=== PATIENT | female | born 1975 | race Caucasian/White ===

== ENCOUNTER 2022-04-23 07:10 | Day surgery (SDC) | payer OTHER ==
[2022-04-20 12:22] VITALS: BMI 32.5
[2022-04-23] MEDS ORDERED: ROPIVACAINE HCL 0.5% 30ML VIAL ONE (07:39)
[2022-04-23] MEDS ORDERED: BUPIVACAINE HCL/PF 2.5 MG/ML - 30 ML VIAL IJ ONE (07:39)
[2022-04-23] MEDS ORDERED: PROPOFOL 40 ML ONE ×2 (08:59→11:42)
[2022-04-23] MEDS ORDERED: MIDAZOLAM HCL 2 MG/2 ML SINGLE DOSE VIAL ONE (08:59)
[2022-04-23] MEDS ORDERED: BUPIVACAINE LIPOSOME/PF (EXPAREL) 266 MG/20 ML VIAL ONE (10:20)
[2022-04-23] MEDS ORDERED: BUPIVACAINE HCL/PF 0.5% (5MG/ML) 10 ML VIAL ONE (10:20)
[2022-04-23] MEDS ORDERED: ceFAZolin SODIUM 1 GM VIAL ONE (10:52)
[2022-04-23] MEDS ORDERED: KETOROLAC TROMETHAMINE 30 MG/1 ML VIAL ONE (10:55)
[2022-04-23] MEDS ORDERED: DEXAMETHASONE SOD PHOSPHATE 4 MG/1 ML VIAL ONE (10:55)
[2022-04-23] MEDS ORDERED: ONDANSETRON 4 MG/2 ML VIAL ONE (10:55)
[2022-04-23] MEDS ORDERED: LABETALOL HCL 5 MG/1 ML (100MG/20 ML VIAL) ONE (11:54)
[2022-04-23] MEDS ORDERED: ACETAMINOPHEN INJECTION 100 ML IVPB ONE (13:25)
[2022-04-23] MEDS ORDERED: ACETAMINOPHEN 1000 MG/100 ML BAG IVPB ONE (13:32)
[2022-04-23] MEDS ORDERED: oxyCODONE HCL 5 MG TABLET PO PRN (13:32)
[2022-04-23] MEDS ORDERED: ONDANSETRON 4 MG/2 ML VIAL IVPUSH PRN (13:32)
[2022-04-23] MEDS ORDERED: LACTATED RINGERS SOLUTION 1,000 ML IV SCH (13:45)
[2022-04-23 15:40] VITALS: TEMP 97.3
[2022-04-23] MEDS ORDERED: oxyCODONE HCL 5 MG TABLET ONE (15:41)
[2022-04-23 16:20] VITALS: RESP 17
[2022-04-23 16:24] VITALS: BP 112/64; PULSE 74
== END 2022-04-23 16:00 | disposition home or self-care (01) ==
LOC: FASU 07:10
PROVIDERS: ATTEND Orthopaedic Surgery Sports Medicine
PROC: 0RNJ4ZZ Release Right Shoulder Joint, Percutaneous Endoscopic Approach (ICD-10-PCS; 2022-04-23)
PROC: 0LS34ZZ Reposition Right Upper Arm Tendon, Percutaneous Endoscopic Approach (ICD-10-PCS; 2022-04-23)
PROC: 0PB94ZZ Excision of Right Clavicle, Percutaneous Endoscopic Approach (ICD-10-PCS; principal; 2022-04-23 10:54)
PROC: 0LS34ZZ Reposition Right Upper Arm Tendon, Percutaneous Endoscopic Approach (ICD-10-PCS; 2022-04-23 10:54)
DX: S46.011A Strain of muscle(s) and tendon(s) of the rotator cuff of right shoulder, initial encounter (principal); M75.21 Bicipital tendinitis, right shoulder; M75.51 Bursitis of right shoulder; M65.811 Other synovitis and tenosynovitis, right shoulder; S43.431A Superior glenoid labrum lesion of right shoulder, initial encounter; M19.011 Primary osteoarthritis, right shoulder; M75.01 Adhesive capsulitis of right shoulder; X58.XXXA Exposure to other specified factors, initial encounter; Y93.9 Activity, unspecified; Y92.9 Unspecified place or not applicable
CPT/HCPCS: 81025; 94760; C1713

== ENCOUNTER 2022-04-27 04:56 | Emergency (ER) | payer OTHER ==
[2022-04-27 05:08] VITALS: BP 151/88; PULSE 81; RESP 18; TEMP 98.2; BMI 32.5
[2022-04-27] MEDS ORDERED: diphenhydrAMINE HCL 25 MG CAPSULE (FP) PO ONE (05:19)
[2022-04-27] MEDS ORDERED: diphenhydrAMINE HCL 50 MG CAPSULE ONE (05:19)
== END 2022-04-27 05:59 | disposition home or self-care (01) ==
LOC: FER 04:56 → SUPCPDRO 04:56 → FER 05:59
DX: G89.18 Other acute postprocedural pain (principal); L29.9 Pruritus, unspecified
CPT/HCPCS: 99283-25

== ENCOUNTER 2023-05-24 06:24 | Day surgery (SDC) | payer OTHER ==
[2023-05-16 17:44] VITALS: BMI 34.5
[2023-05-24 06:47] VITALS: TEMP 97.6
[2023-05-24] MEDS ORDERED: ONDANSETRON 4 MG/2 ML VIAL IVPUSH PRN (06:58)
[2023-05-24] MEDS ORDERED: ACETAMINOPHEN 325 MG TABLET (FP) PO PRN (06:58)
[2023-05-24] MEDS ORDERED: oxyCODONE HCL 5 MG TABLET PO PRN (06:58)
[2023-05-24] MEDS ORDERED: LACTATED RINGERS SOLUTION 1,000 ML IV SCH (07:00)
[2023-05-24] MEDS ORDERED: BUPIVACAINE HCL/PF 2.5 MG/ML - 30 ML VIAL IJ ONE (07:15)
[2023-05-24] MEDS ORDERED: PROPOFOL 20 ML ONE (07:17)
[2023-05-24] MEDS ORDERED: MIDAZOLAM HCL 2 MG/2 ML SINGLE DOSE VIAL ONE (07:17)
[2023-05-24] MEDS ORDERED: ACETAMINOPHEN INJECTION 100 ML IVPB ONE (08:27)
[2023-05-24] MEDS: ACETAMINOPHEN 1000 MG/100 ML BAG IVPB ONE (08:40)
[2023-05-24] MEDS ORDERED: FENTANYL CITRATE/PF 50 MCG/ML VIAL ONE (09:01)
[2023-05-24] MEDS ORDERED: oxyCODONE HCL 5 MG TABLET ONE (09:08)
[2023-05-24] MEDS: oxyCODONE HCL 5 MG TABLET PO PRN (09:10)
[2023-05-24 10:00] VITALS: BP 110/68; PULSE 72; RESP 19
== END 2023-05-24 10:20 | disposition home or self-care (01) ==
LOC: FASU 06:24
PROVIDERS: ATTEND Orthopaedic Surgery Sports Medicine
PROC: 0LN33ZZ Release Right Upper Arm Tendon, Percutaneous Approach (ICD-10-PCS; principal; 2023-05-24 07:55)
DX: M77.11 Lateral epicondylitis, right elbow (principal)
CPT/HCPCS: 81025; 94760; J0131

== ENCOUNTER 2023-10-02 00:25 | Inpatient (IN) | payer OTHER ==
[2023-10-02] MEDS ORDERED: morphine SULFATE 4 MG/ML VIAL ONE ×2 (00:51→04:03)
[2023-10-02] MEDS ORDERED: KETOROLAC TROMETHAMINE 15 MG/ML VIAL ONE ×2 (00:51→03:12)
[2023-10-02] MEDS ORDERED: ONDANSETRON 4 MG/2 ML VIAL ONE ×3 (00:51→04:03)
[2023-10-02] MEDS: KETOROLAC TROMETHAMINE 15 MG/ML VIAL IVPUSH ONE ×2 (01:11→03:16)
[2023-10-02] MEDS: morphine CARPU-JECT 4 MG/1 ML DISP.SYRIN IVPUSH ONE ×3 (01:11→04:09)
[2023-10-02] MEDS: LACTATED RINGERS SOLUTION 1000 ML INFUS.BAG IV ONE (01:12)
[2023-10-02] MEDS: ONDANSETRON 4 MG/2 ML VIAL IVPUSH ONE ×3 (01:12→04:23)
[2023-10-02 01:14] LABS: BASO % 0.6 % (0-2.0); EOS % 1.4 % (0-4.5); HEMATOCRIT 37.4 % (32.4-45.2); HEMOGLOBIN 12.4 GM/dL (10.7-15.3); LYMPH % 31.8 % (8-40); MCH 29.3 pg (25.7-33.7); MCHC 33.2 g/dl (32.0-36.0); MEAN CELL VOLUME 88.2 fl (80-96); MEAN PLT VOLUME 7.1 fl (7.5-11.1); MONO % 8.3 % (3.8-10.2); NEUT % 57.9 % (42.8-82.8); PLATELET COUNT 411 10^3/uL (134-434); RBC 4.24 M/mm3 (3.60-5.2); RDW 12.9 % (11.6-15.6)
[2023-10-02 01:30] LABS: INR 0.97 (0.83-1.09); PROTHROMBIN TIME (PATIENT) 11.2 SEC (9.7-13.0)
[2023-10-02 01:31] LABS: POTASSIUM 3.8 mmol/L (3.5-5.1)
[2023-10-02 01:32] LABS: ACTIVATED PTT 30.6 SECONDS (25.2-36.5)
[2023-10-02 01:33] LABS: ALBUMIN 3.8 g/dl (3.4-5.0); CALCIUM 8.8 mg/dL (8.5-10.1)
[2023-10-02 01:36] LABS: CREATININE 0.8 mg/dL (0.55-1.3)
[2023-10-02 01:38] LABS: BILIRUBIN,TOTAL 0.3 mg/dL (0.2-1); TOT PROT 7.1 g/dl (6.4-8.2)
[2023-10-02 02:52] LABS: EPI CELLS 27 /uL (0-25.1); HYALINE CASTS 3 /uL (0-3.1); PH,URINE 5.5 (5.0-8.0); URINE APPEARANCE CLEAR; URINE BACTERIA 329 /uL (0-1359); URINE BILIRUBIN NEGATIVE (NEGATIVE); URINE COLOR YELLOW; URINE GLUCOSE (UA) NEGATIVE (NEGATIVE); URINE KETONE TRACE (NEGATIVE); URINE LEUK ESTERASE TRACE (NEGATIVE); URINE NITRITE NEGATIVE (NEGATIVE); URINE PROTEIN TRACE (NEGATIVE); URINE WBC 11 /uL (0-25.8)
[2023-10-02 03:26] LABS: URINE RBC 58 /uL (0-23.9); YEAST NONE SEEN (NEGATIVE)
[2023-10-02] MEDS ORDERED: CEFTRIAXONE 1 GM/50 ML BAG ONE (04:32)
[2023-10-02] MEDS ORDERED: TAMSULOSIN HCL 0.4 MG CAP ONE (04:32)
[2023-10-02] MEDS: CEFTRIAXONE 1 GM in DEXTROSE 5%-WATER - 50 ML IVPB ONE (04:40)
[2023-10-02] MEDS: TAMSULOSIN HCL 0.4 MG CAP PO ONE (04:40)
[2023-10-02] MEDS: CEFTRIAXONE 1,000 MG in DEXTROSE 5%-WATER - 50 ML IVPB ONE (04:40)
[2023-10-02] MEDS: SODIUM CHLORIDE 1,000 ML IV SCH ×2 (05:12→11:54)
[2023-10-02] MEDS ORDERED: KETOROLAC TROMETHAMINE 15 MG/ML VIAL IVPUSH PRN (05:17)
[2023-10-02] MEDS ORDERED: ONDANSETRON 4 MG/2 ML VIAL IVPUSH PRN ×2 (05:17→11:40)
[2023-10-02] MEDS ORDERED: ACETAMINOPHEN 500 MG TABLET (FP) PO PRN (05:17)
[2023-10-02 09:22] LABS: HEMATOCRIT 34.8 % (32.4-45.2); HEMOGLOBIN 11.9 GM/dL (10.7-15.3); MCH 29.9 pg (25.7-33.7); MCHC 34.1 g/dl (32.0-36.0); MEAN CELL VOLUME 87.6 fl (80-96); PLATELET COUNT 381 10^3/uL (134-434); RBC 3.98 M/mm3 (3.60-5.2); RDW 13.1 % (11.6-15.6); WHITE BLOOD COUNT 10.8 K/mm3 (4.0-10.0)
[2023-10-02 09:42] LABS: POTASSIUM 4.3 mmol/L (3.5-5.1)
[2023-10-02 09:44] LABS: ALBUMIN 3.3 g/dl (3.4-5.0); BLOOD UREA NITROGEN 13.3 mg/dL (7-18); CALCIUM 8.6 mg/dL (8.5-10.1)
[2023-10-02 09:46] LABS: MAGNESIUM 1.8 mg/dL (1.8-2.4)
[2023-10-02 09:48] LABS: CREATININE 0.9 mg/dL (0.55-1.3); PHOSPHOROUS 4.2 mg/dL (2.5-4.9)
[2023-10-02 09:49] LABS: BILIRUBIN,TOTAL 0.4 mg/dL (0.2-1); TOT PROT 6.6 g/dl (6.4-8.2)
[2023-10-02] MEDS ORDERED: ENOXAPARIN NA (PORCINE) 40 MG/0.4 ML DISP.SYRIN SQ SCH (10:00)
[2023-10-02] MEDS: morphine SULFATE 4 MG/ML VIAL IVPUSH PRN (10:16)
[2023-10-02] MEDS ORDERED: SUCCINYLCHOLINE CHLORIDE 200 MG/10 ML SYRINGE ONE (10:43)
[2023-10-02] MEDS ORDERED: MIDAZOLAM HCL 2 MG/2 ML SINGLE DOSE VIAL ONE (10:43)
[2023-10-02] MEDS ORDERED: PROPOFOL 20 ML ONE (10:43)
[2023-10-02] MEDS ORDERED: ceFAZolin SODIUM 1 GM VIAL ONE (11:01)
[2023-10-02] MEDS: ceFAZolin SODIUM 1 GM VIAL IVPB ONE (11:03)
[2023-10-02] MEDS ORDERED: KETOROLAC TROMETHAMINE 30 MG/1 ML VIAL ONE (11:28)
[2023-10-02] MEDS: ACETAMINOPHEN 1000 MG/100 ML BAG IVPB ONE (11:45)
[2023-10-02] MEDS: LACTATED RINGERS SOLUTION 1,000 ML IV SCH (11:51)
[2023-10-02] MEDS ORDERED: MAGNESIUM HYDROX 2400MG/30ML ORAL SUSPENSION 30 ML CUP PO PRN (13:13)
[2023-10-02] MEDS ORDERED: SENNOSIDES/DOCUSATE COMBO (SENNA PLUS) TABLET (UD) PO PRN (13:13)
[2023-10-02 14:56] VITALS: BMI 33.9
[2023-10-02] MEDS: KETOROLAC TROMETHAMINE 15 MG/ML VIAL IVPUSH PRN (19:12)
[2023-10-02] MEDS: ACETAMINOPHEN 500 MG TABLET (FP) PO PRN (22:26)
[2023-10-03 07:27] LABS: BASO % 0.6 % (0-2.0); HEMATOCRIT 32.8 % (32.4-45.2); HEMOGLOBIN 11.3 GM/dL (10.7-15.3); LYMPH % 22.9 % (8-40); MCH 30.2 pg (25.7-33.7); MCHC 34.6 g/dl (32.0-36.0); MEAN CELL VOLUME 87.4 fl (80-96); MEAN PLT VOLUME 7.2 fl (7.5-11.1); MONO % 10.4 % (3.8-10.2); NEUT % 64.1 % (42.8-82.8); PLATELET COUNT 334 10^3/uL (134-434); RBC 3.76 M/mm3 (3.60-5.2); RDW 13.4 % (11.6-15.6); WHITE BLOOD COUNT 7.1 K/mm3 (4.0-10.0)
[2023-10-03 07:43] LABS: POTASSIUM 4.2 mmol/L (3.5-5.1)
[2023-10-03 07:45] LABS: BLOOD UREA NITROGEN 9.6 mg/dL (7-18); CALCIUM 7.9 mg/dL (8.5-10.1)
[2023-10-03 07:49] LABS: CREATININE 0.6 mg/dL (0.55-1.3)
[2023-10-03] MEDS ORDERED: TAMSULOSIN HCL 0.4 MG CAP PO SCH (08:30)
[2023-10-03] MEDS: morphine SULFATE 4 MG/ML VIAL IVPUSH PRN (08:50)
[2023-10-03] MEDS: TAMSULOSIN HCL 0.4 MG CAP PO SCH (08:56)
[2023-10-03] MEDS ORDERED: CEFTRIAXONE 1 GM in DEXTROSE 5%-WATER - 50 ML IVPB SCH (10:00)
[2023-10-03] MEDS: CEFTRIAXONE 1 GM in DEXTROSE 5%-WATER - 50 ML IVPB SCH (10:17)
[2023-10-04 06:43] LABS: HEMATOCRIT 32.7 % (32.4-45.2); HEMOGLOBIN 11.2 GM/dL (10.7-15.3); MCH 30.2 pg (25.7-33.7); MCHC 34.3 g/dl (32.0-36.0); MEAN PLT VOLUME 7.1 fl (7.5-11.1); PLATELET COUNT 326 10^3/uL (134-434); RBC 3.72 M/mm3 (3.60-5.2); WHITE BLOOD COUNT 9.1 K/mm3 (4.0-10.0)
[2023-10-04 07:02] LABS: POTASSIUM 3.8 mmol/L (3.5-5.1)
[2023-10-04 07:06] LABS: CALCIUM 8.4 mg/dL (8.5-10.1)
[2023-10-04 07:07] LABS: MAGNESIUM 1.7 mg/dL (1.8-2.4)
[2023-10-04 07:09] LABS: CREATININE 0.7 mg/dL (0.55-1.3); PHOSPHOROUS 4.5 mg/dL (2.5-4.9)
[2023-10-04] MEDS: MAGNESIUM SULFATE IN WATER 2 GM/50 ML IVPB IVPB ONE (08:39)
[2023-10-04] MEDS: ACETAMINOPHEN 325 MG TABLET (FP) PO SCH (10:01)
[2023-10-04] MEDS: NAPROXEN 250 MG TABLET PO SCH (10:57)
[2023-10-04] MEDS: ONDANSETRON 4 MG/2 ML VIAL IVPUSH PRN (12:24)
[2023-10-04] MEDS: oxyCODONE HCL 5 MG TABLET PO PRN (13:17)
[2023-10-05 07:43] LABS: BASO % 0.8 % (0-2.0); EOS % 2.3 % (0-4.5); HEMOGLOBIN 11.5 GM/dL (10.7-15.3); LYMPH % 24.2 % (8-40); MCH 30.4 pg (25.7-33.7); MCHC 34.8 g/dl (32.0-36.0); MEAN CELL VOLUME 87.2 fl (80-96); MEAN PLT VOLUME 7.2 fl (7.5-11.1); MONO % 9.7 % (3.8-10.2); PLATELET COUNT 342 10^3/uL (134-434); RBC 3.79 M/mm3 (3.60-5.2); RDW 13.2 % (11.6-15.6); WHITE BLOOD COUNT 6.9 K/mm3 (4.0-10.0)
[2023-10-05 08:03] LABS: POTASSIUM 3.8 mmol/L (3.5-5.1)
[2023-10-05 08:09] LABS: CALCIUM 8.5 mg/dL (8.5-10.1)
[2023-10-05 08:10] LABS: ALBUMIN 3.3 g/dl (3.4-5.0); BLOOD UREA NITROGEN 8.6 mg/dL (7-18)
[2023-10-05 08:11] LABS: PHOSPHOROUS 4.8 mg/dL (2.5-4.9)
[2023-10-05 08:13] LABS: BILIRUBIN,TOTAL 0.6 mg/dL (0.2-1); CREATININE 0.6 mg/dL (0.55-1.3)
[2023-10-05 08:16] LABS: TOT PROT 6.4 g/dl (6.4-8.2)
[2023-10-05] MEDS: oxyCODONE HCL 5 MG TABLET PO PRN (09:39)
[2023-10-06 02:02] VITALS: RESP 18
[2023-10-06 09:19] VITALS: TEMP 98.1
[2023-10-06 09:32] LABS: BASO % 0.7 % (0-2.0); EOS % 2.1 % (0-4.5); HEMATOCRIT 35.4 % (32.4-45.2); HEMOGLOBIN 11.9 GM/dL (10.7-15.3); LYMPH % 23.3 % (8-40); MCH 29.4 pg (25.7-33.7); MCHC 33.7 g/dl (32.0-36.0); MEAN PLT VOLUME 7.2 fl (7.5-11.1); MONO % 9.2 % (3.8-10.2); NEUT % 64.7 % (42.8-82.8); PLATELET COUNT 395 10^3/uL (134-434); RBC 4.06 M/mm3 (3.60-5.2); RDW 13.1 % (11.6-15.6); WHITE BLOOD COUNT 6.6 K/mm3 (4.0-10.0)
[2023-10-06 09:53] LABS: POTASSIUM 4.3 mmol/L (3.5-5.1)
[2023-10-06 09:54] LABS: CALCIUM 8.7 mg/dL (8.5-10.1)
[2023-10-06 09:55] LABS: MAGNESIUM 1.9 mg/dL (1.8-2.4)
[2023-10-06 09:56] LABS: BLOOD UREA NITROGEN 9.9 mg/dL (7-18)
[2023-10-06 09:58] LABS: CREATININE 0.6 mg/dL (0.55-1.3); PHOSPHOROUS 4.4 mg/dL (2.5-4.9)
[2023-10-06 15:40] VITALS: BP 125/79; PULSE 69
== END 2023-10-06 15:56 | disposition home or self-care (01) | DRG 465 ==
LOC: JER 00:25 → JERBED 04:22 → J7W 07:53 → OBSVTOIN 10:19 → J7W 10-03 15:26
PROVIDERS: ADMIT Internal Medicine; ATTEND Internal Medicine
PROC: 0T778DZ Dilation of Left Ureter with Intraluminal Device, Via Natural or Artificial Opening Endoscopic (ICD-10-PCS; principal; 2023-10-02 11:00)
PROC: BT1FZZZ Fluoroscopy of Left Kidney, Ureter and Bladder (ICD-10-PCS; 2023-10-02 11:00)
DX: N13.2 Hydronephrosis with renal and ureteral calculous obstruction (principal); E66.9 Obesity, unspecified; R10.9 Unspecified abdominal pain; R31.0 Gross hematuria; Z68.33 Body mass index [BMI] 33.0-33.9, adult; N13.0 Hydronephrosis with ureteropelvic junction obstruction
CPT/HCPCS: 36415; 74176-TC; 76000-TC-FY; 76775-TC; 80048; 80053; 81003; 83605; 83735; 84100; 84703; 85025; 85027; 85610; 85730; 86850; 86900; 86901; 87086; 93005; 93010; 94760; 99285-25; C2617; G0378; J0131

== ENCOUNTER 2023-11-02 05:07 | Day surgery (SDC) | payer OTHER ==
[2023-11-01 09:05] VITALS: BMI 34.9
[2023-11-02] MEDS ORDERED: PROPOFOL 20 ML ONE (12:15)
[2023-11-02] MEDS ORDERED: MIDAZOLAM HCL 2 MG/2 ML SINGLE DOSE VIAL ONE (12:15)
[2023-11-02] MEDS ORDERED: LIDOCAINE HCL/PF 2% SDV 5ML VIAL ONE (12:15)
[2023-11-02 12:39] VITALS: RESP 18
[2023-11-02] MEDS ORDERED: ONDANSETRON 4 MG/2 ML VIAL ONE (13:27)
[2023-11-02] MEDS ORDERED: KETOROLAC TROMETHAMINE 30 MG/1 ML VIAL ONE (13:27)
[2023-11-02] MEDS ORDERED: ceFAZolin SODIUM 1 GM VIAL ONE (13:27)
[2023-11-02] MEDS ORDERED: DEXAMETHASONE SOD PHOSPHATE 4 MG/1 ML VIAL ONE (13:27)
[2023-11-02] MEDS: ceFAZolin SODIUM 1 GM VIAL IVPB ONE (13:28)
[2023-11-02] MEDS ORDERED: PROMETHAZINE HCL 25 MG/1 ML VIAL IVPB PRN (13:35)
[2023-11-02] MEDS ORDERED: ONDANSETRON 4 MG/2 ML VIAL IVPUSH PRN (13:35)
[2023-11-02] MEDS ORDERED: oxyCODONE HCL 5 MG TABLET PO PRN ×2 (13:35)
[2023-11-02] MEDS: ACETAMINOPHEN 1000 MG/100 ML BAG IVPB ONE (14:17)
[2023-11-02] MEDS ORDERED: ACETAMINOPHEN INJECTION 100 ML IVPB ONE (14:17)
[2023-11-02] MEDS: LACTATED RINGERS SOLUTION 1,000 ML IV SCH (15:24)
[2023-11-02] MEDS ORDERED: methylPREDNISolone NA SUCC 40 MG/1 ML VIAL ONE (16:22)
[2023-11-02 19:15] VITALS: TEMP 97.8
[2023-11-02 19:18] VITALS: BP 121/69; PULSE 70
== END 2023-11-02 17:00 | disposition home or self-care (01) ==
LOC: JASU-SURG 05:07
PROVIDERS: ATTEND Urology
PROC: 0TP98DZ Removal of Intraluminal Device from Ureter, Via Natural or Artificial Opening Endoscopic (ICD-10-PCS; principal; 2023-11-02 14:00)
PROC: BT1FYZZ Fluoroscopy of Left Kidney, Ureter and Bladder using Other Contrast (ICD-10-PCS; 2023-11-02 14:00)
DX: N20.1 Calculus of ureter (principal)
CPT/HCPCS: 76000-TC-FY; 81025; 94760; C1758; J0131